=== PATIENT | female | born 1990 | race Caucasian/White ===

== ENCOUNTER 2022-11-04 10:35 | Emergency (ER) | payer BC, OTHER ==
[2022-11-04] MEDS ORDERED: Sodium Chloride 0.9% 10 ML Syringe FLUSH PRN (10:46)
[2022-11-04] MEDS: Sodium Chloride 0.9% 1,000 ML IV ONE (11:00)
[2022-11-04 11:06] LABS: BASOPHILS PERCENT AUTO 0.2 % (0.2-1.5); EOSINOPHILS ABSOLUTE AUTO 0.1 x10-3/uL (0.0-0.8); EOSINOPHILS PERCENT AUTO 0.6 % (0.6-8.1); HEMATOCRIT 35.9 % (34.2-48.2); HEMOGLOBIN 12.1 g/dL (11.4-15.5); LYMPHOCYTES ABSOLUTE AUTO 1.7 x10-3/uL (1.0-4.4); LYMPHOCYTES PERCENT AUTO 13.5 % (18.4-52.1); MEAN CORPUSCULAR HEMOGLOBIN 31.4 pg (23.9-33.9); MEAN CORPUSCULAR HGB CONC 33.8 g/dL (31.9-34.8); MEAN CORPUSCULAR VOLUME 92.8 fL (76.7-100.5); MEAN PLATELET VOLUME 8.6 fL (7.1-12.4); MONOCYTES ABSOLUTE AUTO 0.7 x10-3/uL (0.3-1.0); MONOCYTES PERCENT AUTO 5.7 % (4.4-15.7); NEUTROPHILS ABSOLUTE AUTO 10.2 x10-3/uL (1.5-6.3); PLATELET COUNT,PLT 238 x10(3)uL (151-488); RED BLOOD CELL COUNT 3.86 x10(6)uL (3.60-5.20); RED CELL DISTRIBUTION WIDTH 12.7 % (12.3-16.5); WHITE BLOOD CELL COUNT,WBC 12.8 x10-3/uL (3.0-10.3)
[2022-11-04 11:07] LABS: BLOOD UREA NITROGEN,BUN 7 mg/dL (7-18); CARBON DIOXIDE,CO2 28 mmol/L (21-32); CHLORIDE,CL 102 mmol/L (100-110); CREATININE 0.7 mg/dL (0.55-1.02); ESTIMATED GFR 116 mL/min (>60); GLUCOSE RANDOM 82 mg/dL (80-116); SODIUM,NA 138 mmol/L (135-145)
[2022-11-04 11:12] LABS: A/G RATIO 0.8; ALANINE AMINOTRANSFERASE,ALT 25 U/L (12-36); ALBUMIN 3.1 g/dL (3.5-5.2); ALKALINE PHOSPHATASE 76 IU/L (56-112); ASPARTATE AMNIOTRANSFERASE,AST 19 IU/L (5-25); BILIRUBIN TOTAL 0.2 mg/dL (0.1-1.3); MAGNESIUM 1.7 mg/dL (1.8-2.5); PROTEIN TOTAL,TP 7.2 g/dL (6.0-8.0)
[2022-11-04] MEDS: Magnesium Sulfate/Water 4 GM in Premix Bag 1 BAG IV ONE (11:32)
[2022-11-04] MEDS: Betamethasone Acetate/Betamethasone Sod Phosphate 6 MG/1 ML MDV IM ONE (11:40)
[2022-11-04] MEDS: Magnesium Sulfate/Water 40 GM/1,000 ML BAG IV ONE (11:45)
[2022-11-04] MEDS: Penicillin G Potassium 5 MILLUNITS in Sodium Chloride 0.9% 100 ML IV ONE (11:45)
== END 2022-11-04 11:50 ==
LOC: FB.ED 10:35
DX: O60.02 Preterm labor without delivery, second trimester (principal); O46.92 Antepartum hemorrhage, unspecified, second trimester; Z3A.26 26 weeks gestation of pregnancy
CPT/HCPCS: 36415; 80053; 83735; 85025; 96365; 96372; 96375; 99285; 99285-25; J0702; J2540; J3475; J3490; J7030